=== PATIENT | male | born 1935 | race Caucasian/White ===

== ENCOUNTER 2019-05-17 10:22 | Outpatient (CLI) | payer MEDICARE | END 2019-05-17 23:59 | disposition home or self-care (01) | LOC: CVU 10:22 | PROVIDERS: ATTEND Internal Medicine Cardiovascular Disease | DX: I08.3 Combined rheumatic disorders of mitral, aortic and tricuspid valves (principal); I11.9 Hypertensive heart disease without heart failure; I70.0 Atherosclerosis of aorta; I25.10 Atherosclerotic heart disease of native coronary artery without angina pectoris; E78.5 Hyperlipidemia, unspecified; Z95.1 Presence of aortocoronary bypass graft | CPT/HCPCS: 0399T; 93306 ==

== ENCOUNTER 2019-07-14 08:27 | Inpatient (IN) | payer MEDICARE ==
[~2019-07-14] VITALS: Ht 172.7 cm; Wt 90.3 kg
[~2019-07-14 08:27] MED LIST: ACET-1600 PO; AMLO-150 PO; ASPI-496 PO; ATOR40TA PO; CETI10CA PO; CHLORHEXIDINE 15 ML UDC ONE; DICL100G19 TP; FLUT1DIS IH; FLUT9.9S NAS; GABA300C10 PO; IPRA4AER INH; LATA7.5D EACHEYE; LISI-170 PO; METO-93 PO; OMEP-110 PO
[2019-07-14] MEDS ORDERED: SODIUM CHLORIDE 0.9% 1,000 ML IV ONE (08:58)
[2019-07-14] MEDS ORDERED: CHLORHEXIDINE 15 ML UDC MM PRN (09:00)
[2019-07-14] MEDS ORDERED: ONDANSETRON 2MG/ML, 2ML IVPush PRN ×2 (09:00→11:30)
[2019-07-14] MEDS ORDERED: CINN500C2 PO (09:11)
[2019-07-14] MEDS ORDERED: CHOL100014 PO (09:11)
[2019-07-14] MEDS ORDERED: PLEASE ENTER HEIGHT AND WEIGHT MC SCH (09:30)
[2019-07-14 09:45] LABS: BASOPHILS # (AUTO) 0.01 x10^3/uL (0-0.1); BASOPHILS % (AUTO) 0 % (0-1); EOSINOPHILS # (AUTO) 0.39 x10^3/uL (0-0.4); EOSINOPHILS % (AUTO) 6 % (1-7); LYMPHOCYTES # (AUTO) 1.01 x10^3/uL (1-3.4); LYMPHOCYTES % (AUTO) 15 % (22-44); MD NO; MEAN CORPUSCULAR VOLUME 94.2 fL (81-97); MEAN PLATELET VOLUME 8.5 fL (7.4-10.4); MONOCYTES # (AUTO) 0.76 x10^3/uL (0.2-0.8); MONOCYTES % (AUTO) 12 % (2-9); NEUTROPHILS # (AUTO) 4.43 x10^3/uL (1.8-6.8); NEUTROPHILS % (AUTO) 67 % (42-75); PLATELET COUNT 201 x10^3/uL (130-400); RED BLOOD COUNT 4.17 x10^6/uL (4.38-5.82); RED CELL DISTRIBUTION WIDTH 14.2 % (9.4-14.8)
[2019-07-14 09:51] LABS: ALANINE AMINOTRANSFERASE 27 U/L (12-78); ALBUMIN 3.9 g/dL (3.4-5.0); ANION GAP 7 mmol/L (5-15); CALCIUM 8.9 mg/dL (8.5-10.1); CHLORIDE 110 mmol/L (98-107); CREATININE 1.09 mg/dL (0.7-1.3)
[2019-07-14 09:55] LABS: ALKALINE PHOSPHATASE 115 U/L (45-117); BILIRUBIN,TOTAL 0.6 mg/dL (0.2-1.0); TOTAL PROTEIN 7.3 g/dL (6.4-8.2)
[2019-07-14] MEDS ORDERED: FENTANYL PF 250 MCG/5ML ONE (10:08)
[2019-07-14 10:11] LABS: INTERNATIONAL NORMALIZED RATIO 1.1 (0.93-1.1); PROTHROMBIN TIME 11.5 Seconds (9.6-11.5)
[2019-07-14] MEDS ORDERED: HEPARIN 1,000 UNITS/ML, 30ML ONE (10:13)
[2019-07-14] MEDS ORDERED: SUCCINYLCHOLINE 20 MG/ML, 10ML ONE (10:14)
[2019-07-14] MEDS ORDERED: PROTAMINE SULFATE 10 MG/ML, 25ML ONE (10:14)
[2019-07-14] MEDS ORDERED: ROCURONIUM 10MG/ML,5ML ONE (10:14)
[2019-07-14] MEDS ORDERED: PROPOFOL 10 MG/ML, 20ML ONE (10:14)
[2019-07-14] MEDS ORDERED: PHENYLEPHRINE 10 MG/ML ONE (10:14)
[2019-07-14] MEDS ORDERED: ONDANSETRON 2MG/ML, 2ML ONE (10:15)
[2019-07-14] MEDS ORDERED: DEXAMETHASONE 4 MG/ML, 1ML ONE (10:15)
[2019-07-14] MEDS ORDERED: CEFAZOLIN 1,000 MG ONE (10:15)
[2019-07-14] MEDS ORDERED: ACETAMINOPHEN 500 MG TABLET PO PRN (11:30)
[2019-07-14] MEDS ORDERED: HYDROcodone/APAP 5/325 TABLET PO PRN (11:30)
[2019-07-14] MEDS ORDERED: CLOPIDOGREL 300 MG TABLET PO ONE (11:30)
[2019-07-14] MEDS ORDERED: ACETAMINOPHEN 325 MG TABLET PO PRN (11:30)
[2019-07-14 14:10] VITALS: BP 135/47
[2019-07-14 14:31] VITALS: BP 135/47
[2019-07-14] MEDS ORDERED: TEMPLATE NON-FORMULARY MED. (Ipratropium/Albuterol Sulfate (Combivent Respimat Inhal Spray MC SCH (16:00)
[2019-07-14 19:36] VITALS: BP 134/71
[2019-07-14] MEDS ORDERED: TEMPLATE NON-FORMULARY MED. (Fluticasone/Salmeterol** (Advair 100-50 Diskus**) 1 PUFF) MC SCH (21:00)
[2019-07-14] MEDS: OMEPRAZOLE 20 MG CAPSULE.DR PO SCH (21:46)
[2019-07-14] MEDS: ATORVASTATIN 40 MG TABLET PO SCH (21:46)
[2019-07-14] MEDS: GABAPENTIN 300 MG CAPSULE PO SCH (21:46)
[2019-07-15 01:32] VITALS: BP 110/66
[2019-07-15 05:48] LABS: ANION GAP 10 mmol/L (5-15); CHLORIDE 108 mmol/L (98-107)
[2019-07-15 05:49] LABS: CREATININE 1.13 mg/dL (0.7-1.3)
[2019-07-15 06:08] LABS: BASOPHILS % (AUTO) 1 % (0-1); EOSINOPHILS # (AUTO) 0.06 x10^3/uL (0-0.4); EOSINOPHILS % (AUTO) 1 % (1-7); LYMPHOCYTES # (AUTO) 0.87 x10^3/uL (1-3.4); LYMPHOCYTES % (AUTO) 7 % (22-44); MD NO; MEAN CORPUSCULAR HEMOGLOBIN 31.6 pg (27.5-34.5); MEAN CORPUSCULAR HGB CONC 32.8 g/dL (33.2-36.2); MEAN CORPUSCULAR VOLUME 96.2 fL (81-97); MEAN PLATELET VOLUME 8.6 fL (7.4-10.4); MONOCYTES # (AUTO) 0.93 x10^3/uL (0.2-0.8); MONOCYTES % (AUTO) 7 % (2-9); NEUTROPHILS # (AUTO) 10.68 x10^3/uL (1.8-6.8); NEUTROPHILS % (AUTO) 85 % (42-75); PLATELET COUNT 183 x10^3/uL (130-400); RED BLOOD COUNT 4.21 x10^6/uL (4.38-5.82); RED CELL DISTRIBUTION WIDTH 14.2 % (9.4-14.8)
[2019-07-15 06:56] VITALS: BP 124/68
[2019-07-15] MEDS: FLUTICASONE NASAL SPRAY 16GM NAS SCH (09:00)
[2019-07-15] MEDS: CLOPIDOGREL 75 MG TABLET PO SCH (09:44)
[2019-07-15] MEDS: LISINOPRIL 20 MG TABLET PO SCH (09:44)
[2019-07-15] MEDS: OMEPRAZOLE 20 MG CAPSULE.DR PO SCH ×2 (09:44→20:34)
[2019-07-15] MEDS: METOPROLOL SUCCINATE 50 MG TAB.ER.24H PO SCH (09:45)
[2019-07-15] MEDS: GABAPENTIN 300 MG CAPSULE PO SCH ×2 (09:45→20:34)
[2019-07-15] MEDS: ASPIRIN 81 MG TABLET EC PO SCH (09:45)
[2019-07-15] MEDS: CETIRIZINE 10 MG TABLET PO SCH (09:45)
[2019-07-15] MEDS: LATANOPROST OPHTH 0.005%, 2.5ML OP SCH (09:48)
[2019-07-15 13:53] VITALS: BP 113/62
[2019-07-15 19:44] VITALS: BP 113/67
[2019-07-15] MEDS: AMLODIPINE 5 MG TABLET PO SCH (20:34)
[2019-07-15] MEDS: ATORVASTATIN 40 MG TABLET PO SCH (20:34)
[2019-07-16 00:02] VITALS: BP 132/75
[2019-07-16 07:04] VITALS: BP 124/67
[2019-07-16] MEDS ORDERED: CLOP75TA PO (08:42)
[2019-07-16] MEDS: OMEPRAZOLE 20 MG CAPSULE.DR PO SCH (08:55)
[2019-07-16] MEDS: ASPIRIN 81 MG TABLET EC PO SCH (08:55)
[2019-07-16] MEDS: CLOPIDOGREL 75 MG TABLET PO SCH (08:55)
[2019-07-16] MEDS: AMLODIPINE 5 MG TABLET PO SCH (08:55)
[2019-07-16] MEDS: METOPROLOL SUCCINATE 50 MG TAB.ER.24H PO SCH (08:56)
[2019-07-16] MEDS: LISINOPRIL 20 MG TABLET PO SCH (08:56)
[2019-07-16] MEDS: CETIRIZINE 10 MG TABLET PO SCH (08:56)
[2019-07-16] MEDS: GABAPENTIN 300 MG CAPSULE PO SCH (08:56)
[2019-07-16] MEDS: FLUTICASONE NASAL SPRAY 16GM NAS SCH (09:00)
[2019-07-16] MEDS: LATANOPROST OPHTH 0.005%, 2.5ML OP SCH (09:09)
== END 2019-07-16 10:34 | disposition home or self-care (01) | DRG 266 ==
LOC: ORIP 08:27 → CCU 11:19 → 5SO 14:08 → DCLOUNGE 07-16 10:24
PROVIDERS: ADMIT Internal Medicine Cardiovascular Disease; ATTEND Internal Medicine Cardiovascular Disease
PROC: 03HY32Z Insertion of Monitoring Device into Upper Artery, Percutaneous Approach (ICD-10-PCS; 2019-07-14)
PROC: B24BZZ4 Ultrasonography of Heart with Aorta, Transesophageal (ICD-10-PCS; 2019-07-14)
PROC: B3101ZZ Fluoroscopy of Thoracic Aorta using Low Osmolar Contrast (ICD-10-PCS; 2019-07-14)
PROC: 02RF38Z Replacement of Aortic Valve with Zooplastic Tissue, Percutaneous Approach (ICD-10-PCS; principal; 2019-07-14 13:30)
DX: I35.2 Nonrheumatic aortic (valve) stenosis with insufficiency (principal); Z00.6 Encounter for examination for normal comparison and control in clinical research program; I50.33 Acute on chronic diastolic (congestive) heart failure; E11.9 Type 2 diabetes mellitus without complications; I11.0 Hypertensive heart disease with heart failure; I25.10 Atherosclerotic heart disease of native coronary artery without angina pectoris; E78.2 Mixed hyperlipidemia; R00.1 Bradycardia, unspecified; I44.7 Left bundle-branch block, unspecified; Z85.46 Personal history of malignant neoplasm of prostate; Z87.891 Personal history of nicotine dependence; Z88.8 Allergy status to other drugs, medicaments and biological substances; Z95.1 Presence of aortocoronary bypass graft
CPT/HCPCS: 33361; 36415; 71275; 74174; 80048; 80053; 83880; 85025; 85347; 85610; 85730; 86850; 86900; 86923; 87081; 93005; 93306; 93312; 93321; 93325; 93355; 93880; 94010; 94726; 94729; C1760; C1769; C1894; G0378; J0690; J1100; J1644; J2405; J2704; J2720; J3010; Q9967; J0330; J2370; J7030

== ENCOUNTER → 2020-07-23 | Outpatient (CLI) | payer MEDICARE ==
[~2020-07-23] MED LIST changes: -CHLORHEXIDINE 15 ML UDC ONE; +CHOL100014 PO; +CINN500C2 PO; +CLOP75TA PO
== END | disposition home or self-care (01) ==
LOC: CFH 07:56
PROVIDERS: ATTEND Internal Medicine Cardiovascular Disease
DX: I05.1 Rheumatic mitral insufficiency (principal)
CPT/HCPCS: 93306